=== PATIENT | female | born 1945 | race Caucasian/White ===

== ENCOUNTER 2020-05-10 09:43 | Outpatient (REF) | payer MEDICARE, OTHER, SELFPAY ==
--- NOTE | 2020-05-10 09:52 | MM_ITS ---
EXAMINATION: MM SCREENING DIGITAL BREAST TOMOSYNTHESIS, BILATERAL CLINICAL INFORMATION: Screening. Asymptomatic. Family history breast cancer, sister. The lifetime risk of breast cancer based on the Tyrer-Cuzick Model is 6%. COMPARISON: Mammography: 12/26/2018, 05/11/2017 TECHNIQUE: Digital breast tomosynthesis is performed in both the craniocaudal and mediolateral oblique views along with computer-aided detection (CAD). Synthesized 2D images are generated from the tomosynthesis. FINDINGS: There are scattered areas of fibroglandular density (ACR BI-RADS breast composition Category b). Parenchymal pattern is similar to prior studies. There is no developing density or interval mass or architectural abnormality. No abnormal calcifications. The skin contours are smooth. MM/MM tomosynthesis screening BI IMPRESSION: No mammographic evidence of malignancy. ASSESSMENT: BI-RADS 1: Negative RECOMMENDATION: Routine annual mammography screening. This patient's information was entered into a reminder system with a target due date for their next mammogram.
== END 2020-05-10 09:44 | disposition home or self-care (01) ==
LOC: HO.MAMMO 09:43
PROVIDERS: Visit Provider Registered Nurse
DX: Z12.31 Encounter for screening mammogram for malignant neoplasm of breast (principal)
CPT/HCPCS: 77063; 77067

== ENCOUNTER 2025-05-31 12:14 | Outpatient (REF) | payer MEDICARE, OTHER, SELFPAY ==
--- NOTE | ~2025-05-31 | MM_ITS ---
EXAMINATION(S): MM DIAGNOSTIC DIGITAL BREAST TOMOSYNTHESIS, BILATERAL CLINICAL INFORMATION: Left breast pain According to patient, tenderness over the entire breast for 4 to 5 months, on and off. COMPARISON: Comparison made to multiple prior, most recent May 10, 2020, and most remote May 11, 2017. TECHNIQUE: Digital breast tomosynthesis is performed in both the mediolateral oblique and craniocaudal views along with computer-aided detection (CAD). Synthesized 2D images are generated from the tomosynthesis. FINDINGS: BREAST COMPOSITION: There are scattered areas of fibroglandular density. RIGHT BREAST: Asymmetry in the upper breast on the MLO view presses out with spot compression, therefore, most likely represented overlapping fibroglandular breast tissue. No significant masses, suspicious calcifications or other abnormalities are seen. LEFT BREAST: No significant masses, suspicious calcifications or other abnormalities are seen. MM/MM tomosynthesis diagnostic BI IMPRESSION: RIGHT BREAST: Negative, no mammographic evidence of malignancy. Normal interval follow-up is recommended in 12 months. LEFT BREAST: Negative, no mammographic evidence of malignancy. Clinical follow-up is recommended for the clinical concern of diffuse left breast pain. Otherwise, normal interval follow-up mammogram is recommended in 12 months. ASSESSMENT: BI-RADS: Category 1: Negative RECOMMENDATION: 1. Patient should be managed based on the clinical impression. 2. Otherwise, routine annual screening mammography. Results were provided to the patient at time of visit by the technologist. This patient's information was entered into a reminder system with a target due date for their next mammogram. Electronically signed by: Teri Durán MD 05/31/2025 01:39 PM [email or web address]
--- OUTSIDE RECORDS SUMMARY | 2025-05-31 15:58 | XMS_ITS | Encounter Summary ---
Author Organization [facility] Address [address] [address] Phone Care Team Providers Care Application Specialist Name Role Phone Johnathon Naranjo MD Unavailable [phone] Jovana Jacobsen PAINTER AIRBRUSH Primary Care Provider Eddie Enriquez MD Unavailable [phone] Gia Chambers PHARMACY INNOVATION ASSISTANT Primary Care Provider Rusty FordC Primary Care Provider [phone] Encounter Details Date Type Department Care Team (Latest Contact Info) Description 12/12/2021 Transcribe Orders Virtual Department [address] [place] [address] Jesenia James, RAUL [address] [place] [address] Lower abdominal pain (Primary Dx) Social History Tobacco Use Types Packs/Day Years Used Date Smoking Tobacco: Never Smokeless Tobacco: Never Alcohol Use Standard Drinks/Week Comments Yes 0 (1 standard drink = 0.6 oz pur e alcohol) 2 x month, 1 drink Child or Family Care Answer Date Record ed Do you have problems with on e of the following making it difficult for you to work, study, or receive health care? No 05/17/2021 Education Answer Date Recorded Are you interested in help w ith more adult education (for example, completing high school, GED, job training, learning the Kiswahili language, technical skills, or developing parenting skills)? No 05/17/2021 Food Answer Date Recorded Within the past 6 months we worried whether our food would run out before we got money to buy more. Never True 05/17/2021 Within the past 6 months the food we bought just didn't last and we didn't have enough money to get more. Never True Residential Stability Answer Date Recor ded What is your housing situation today? I have sita sing 05/17/2021 How many times have you move d in the past 12 months? Zero (I did not move) 05/17/2021 Paying for Meds Answer Date Recorded Do you have trouble paying for medicines? No 05/17/2021 Paying Utility Bills Answer Date Record ed Do you have trouble paying your heating or elect ricity bill? No 05/17/2021 Transportation Answer Date Recorded Has the lack of transportati on kept you from medical appointments or from getting medications? No 05/17/2021 Unemployment Answer Date Recorded Are you currently unemployed or working on a part-time or temporary basis, and looking for work? No 05/17/2021 Comments No Sex and Gender Information Value Date Recorded Sex Assigned at Not on file Legal Sex Female 10:10 PM EDT Gender Identity Not on file Sexual Orientation Not on file documented as of this encounter Plan of Treatment Upcoming Encounters Date Type Department Care Team (Late st Contact Info) Description 06/01/2025 8:40 AM EST Office Visit [facility] Orthopedics & Sports Medicine [address] [place] [address] [place] [address] Wiliam Willis PA-C [address] [place] [address] [place] [phone] [email or web address] 06/07/2025 10:30 AM EST Appointment [facility] EKG [address] [place] [address] Rickie Farr DO 4 [facility] [place] [place] [address] 06/16/2025 10:00 AM EST Office Visit [facility] Orthopedics & Sports Medicine [address] [place] [address] Wiliam Willis PA-C [address] [place] [address] [place] [address] [email or web address] 06/16/2025 3:20 PM EST Office Visit [facility] Internal Medicine [address] [place] [address] Rusty Ford PA-C [address] [place] [address] 07/12/2025 Procedure Pass OR Admitting Dept - Virtual Department [address] [place] [address] 07/12/2025 7:30 AM EST Hospital Encounter OR Admitting Dept - Virtual Department [address] [place] [phone] Rickie Farr, 4 [facility] [place] [address] 07/12/2025 7:30 AM EST - 07/12/2025 9:53 AM EST Surgery OR Admitting Dept - Virtual Department [address] [place] [address] Rickie Farr DO 4 [facility] [place] [address] ARTHROPLASTY ANATOMIC INVERSE SHOULDER 07/27/2025 9:00 AM EST Office Visit [facility] Orthopedics & Sports Medicine [address] [place] [address] [place] [address] Wiliam Willis PA-C [address] [place] [address] [place] [phone] [email or web address] 08/24/2025 10:00 AM EST Office Visit [facility] Orthopedics & Sports Medicine [address] [place] [address] [place] [address] Rickie Farr DO [address] [place] [address] [facility] [place] [address] [email or web address] Scheduled Procedures Name Priority Associated Diagnoses Date/Ti me ARTHROPLASTY ANATOMIC INVERSE SHOULDER Primary localized osteoarthrosis of left shoulder region 07/12/2025 7:30 AM EST TENODESIS BICEPS TENDON SHOULDER Primary localized osteoarthrosis of left shoulder region 07/12/2025 7:30 AM EST documented as of this encounter Results * US ABDOMEN COMPLETE (ADULT) (01/05/2022 8:37 AM EDT) Anatomical Region Laterality Modality Abdomen Ultrasound 01/05/2022 10:0 3 AM EDT Impressions 01/05/2022 10:06 AM EDT 1.Mild hepatic steatosis. 2.Cholecystectomy. Narrative 01/05/2022 10:06 AM EDT US ABDOMEN COMPLETE (ADULT) TECHNIQUE: Abdominal Ultrasound Complete. COMPARISON: Ultrasound dated 02/03/2013 FINDINGS: Liver: Mildly echogenic. Two left hepatic lobe cysts again seen, the larger measuring 1.8 x 1.7 x 0.9 cm. No other focal lesions. Main Portal Vein: Patent with normal direction of flow. Gallbladder: Surgically absent. Biliary: Normal. No intrahepatic biliary ductal dilatation. The common bile duct measures 6 mm. Pancreas: Visualized portions are unremarkable Spleen: Normal. No splenomegaly. Kidneys: Normal. No stones or hydronephrosis. Aorta: Normal, where visualized sonographically. IVC: Normal intrahepatic segment. Procedure Note Bertin rOtega MD - 01/05/2022 US ABDOMEN COMPLETE (ADULT) TECHNIQUE: Abdominal Ultrasound Complete. COMPARISON: Ultrasound dated 02/03/2013 FINDINGS: Liver: Mildly echogenic. Two left hepatic lobe cysts again seen, thelarger measuring 1.8 x 1.7 x 0.9 cm. No other focal lesions. Main Portal Vein: Patent with normal direction of flow. Gallbladder: Surgically absent. Biliary: Normal. No intrahepatic biliary ductal dilatation. The common bile duct measures 6 mm. Pancreas: Visualized portions are unremarkable Spleen: Normal. No splenomegaly. Kidneys: Normal. No stones or hydronephrosis. Aorta: Normal, where visualized sonographically. IVC: Normal intrahepatic segment. IMPRESSION: 1.Mild hepatic steatosis. 2.Cholecystectomy. us Jesenia James ACCOUNT TECHNICIAN IMG US ABDOMEN Final Res ult documented in this encounter Visit Diagnoses Diagnosis Lower abdominal pain- Primary Abdominal pain, other specified site Lower abdominal pain Abdominal pain, other specified site Primary localized osteoarthrosis of left shoulder region documented in this encounter Additional Health Concerns Infection Onset Date Last Indicated Resolved Time COVID-19 06/20/2023 06/20/2023 07/11/2023 1:26 AM EST CoV-Risk Comment:Per Ambulatory Triage Form 06/21/2023 06/21/202306/21 9:34 AM EST CoV-Risk 02/11/2024 02/11/2024 02/22/2024 1:24 AM EDT Assessment Noted Time PHQ-2 Depression Total Score: 0 06/09/20 3:39 PM EST documented as of this encounter Care Teams Application Specialist Relationship Specialty Start Date End Date Jovana Jacobsen CNP [address] [place] [address] [email or web address] PCP - General Internal Medicine 07/14/20 04/04/23 Gia Chambers FNP [address] [address] PCP - General Nurse Practitioner 04/05/23 08/20/24 [email or web address] Ford PA-C [address] [place] [address] [email or web address] PCP - General Physician Client Relationship Consultant 08/21/24 Johnathon Naranjo MD [address] [place] [phone] Ophthalmology 06/03/20 dEdie Enriquez MD [address] [place] [phone] [email or web address] Insurance Assigned Provider 10/07/21 07/07/22 documented as of this encounter Additional Source Comments The information contained in this document represents components of the legal health record. It is not the complete legal health record.[facility]
--- OUTSIDE RECORDS SUMMARY | 2025-05-31 15:58 | XMS_ITS | Encounter Summary ---
Author Organization [facility] Address [address] [place] [address] Phone Care Team Providers Care Talend Developer Name Role Phone Johnathon Naranjo MD Unavailable [phone] Rusty Ford PA-C Primary Care Provider [phone] Encounter Details Date Type Department Care Team (Latest Contact Info) Description 01/14/2025 Ancillary Orders [address] [address] Sandra Bejarano MD [address] [place] [address] Orthopedics & Sports Medicine, [place] [address] [email or web address] Localized osteoarthritis of shoulder regions, bilateral (Primary Dx) Social History Tobacco Use Types Packs/Day Years Used Date Smoking Tobacco: Never Smokeless Tobacco: Never Alcohol Use Standard Drinks/Week Comments Yes 0 (1 standard drink = 0.6 oz pur e alcohol) 1-2 drinks, 2-4 x month Child or Family Care Answer Date Record ed Do you have problems with on e of the following making it difficult for you to work, study, or receive health care? Family care (i.e. spouse, parents, other family) 06/01/2024 Education Answer Date Recorded Are you interested in more education? Not on jose r e 05/20/2023 Are you concerned about learning? Not on file 05/20/2023 No 05/20/2023 No 05/20/2023 Food Answer Date Recorded Within the past 6 months we worried whether our food would run out before we got money to buy more. Never True 06/01/2024 Within the past 6 months the food we bought just didn't last and we didn't have enough money to get more. Never True Residential Stability Answer Date Recor ded What is your housing situation today? I choose n ot to answer 06/01/2024 How many times have you move d in the past 12 months? Zero (I did not move) 06/01/2024 Paying for Meds Answer Date Recorded Do you have trouble paying for medicines? Yes 06/01/2024 Paying Utility Bills Answer Date Record ed Do you have trouble paying your heating or elect ricity bill? Yes 06/01/2024 Transportation Answer Date Recorded Has the lack of transportati on kept you from medical appointments or from getting medications? No 06/01/2024 Unemployment Answer Date Recorded Are you currently unemployed or working on a part-time or temporary basis, and looking for work? No 05/17/2021 Digital Access Answer Date Recorded No 06/01/2024 Yes 06/01/2024 Do you have reliable internet access at home? Ye s 06/01/2024 Do you have a device (e.g., phone, tablet, computer) with a working camera? Yes 06/01/2024 Intimate Partner Violence Answer Date R ecorded Denied Basic Needs Not on file 11/04/2024 In the past 12 months have y ou been in a relationship with a person who hurts, threatens, or tries to control you? No 11/04/2024 Worried food would run out Not on file 11/04 In the past 12 months have y ou been in a relationship with a person who hurts, threatens, or tries to control you? No 11/04/2024 Comments No Sex and Gender Information Value Date Recorded Sex Assigned at Not on file Legal Sex Female 10:10 PM EDT Gender Identity Not on file Sexual Orientation Not on file documented as of this encounter Plan of Treatment Upcoming Encounters Date Type Department Care Team (Late st Contact Info) Description 06/01/2025 8:40 AM EST Office Visit [facility] Orthopedics & Sports Medicine [address] [place] [address] [place] [address] Wiliam Willis PA-C [address] [place] [address] [place] [address] [email or web address] 06/07/2025 10:30 AM EST Appointment [facility] EKG [address] [place] [address] Rickie Farr DO 4 [facility] [place] [place] [address] 06/16/2025 10:00 AM EST Office Visit [facility] Orthopedics & Sports [address] [address] Wiliam Willis PA-C [address] [place] [address] [place] [address] [email or web address] 06/16/2025 3:20 PM EST Office Visit [facility] Internal Medicine [address] [place] [address] Rusty Ford PA-C [address] [place] [address] 07/12/2025 Procedure Pass OR Admitting Dept - Virtual Department [address] [place] [address] 07/12/2025 7:30 AM EST Hospital Encounter OR Admitting Dept - Virtual Department [address] [place] [address] Rickie Farr DO [address] [place] [address] Orthopedics & Sports [facility] [place] [address] 07/12/2025 7:30 AM EST - 07/12/2025 9:53 AM EST Surgery OR Admitting Dept - Virtual Department [address] [place] [address] Rickie Farr DO 4 [facility] [place] [address] [email or web address] ARTHROPLASTY ANATOMIC INVERSE SHOULDER 07/27/2025 9:00 AM EST Office Visit [facility] Orthopedics & Sports Medicine [address] [place] [address] [place] [address] Wiliam Willis PA-C [address] [place] [address] [place] [address] [email or web address] 08/24/2025 10:00 AM EST Office Visit [facility] Orthopedics & Sports Medicine [address] [place] [address] [place] [address] Rickie Farr DO 4 [facility] [place] [place] [address] [email or web address] Pending Results Name Type Priority Associated Diagnoses Date /Time FL Guidance Needle Placement Non-Spine Imaging Routine Localized osteoarthritis of shoulder regions, bilateral 01/19/2025 12:01 PM EDT Scheduled Orders Name Type Priority Associated Diagnoses Orde r Schedule FL Guidance Needle Placement Non-Spine Imaging Routine Localized osteoarthritis of shoulder regions, bilateral 1 Occurrences starting 01/14/2025 until 04/16/2025 Scheduled Procedures Name Priority Associated Diagnoses Date/Ti nj ARTHROPLASTY ANATOMIC INVERSE SHOULDER Primary localized osteoarthrosis of left shoulder region 07/12/2025 7:30 AM EST TENODESIS BICEPS TENDON SHOULDER Primary localized osteoarthrosis of left shoulder region 07/12/2025 7:30 AM EST documented as of this encounter Visit Diagnoses Diagnosis Localized osteoarthritis of shoulder regions, bilateral- Primary Primary localized osteoarthrosis of left shoulder region documented in this encounter Additional Health Concerns Assessment Noted Time PHQ-2 Depression Total Score: 0 06/03/20 24 8:02 PM EST documented as of this encounter Care Teams Talend Developer Relationship Specialty Start Date End Date Rusty Ford PA-C [address] [place] [address] [email or web address] PCP - General Physician Gasoline Catalyst Operator 08/21/24 Johnathon Naranjo MD [address] [place] [phone] Ophthalmology 06/03/20 documented as of this encounter Additional Source Comments The information contained in this document represents components of the legal health record. It is not the complete legal health record.[facility]
--- OUTSIDE RECORDS SUMMARY | 2025-05-31 15:58 | XMS_ITS | Clinical Summary ---
Author Organization [facility] Address [address] [place] [id number] Phone Care Team Providers Care Shop Service Technician Name Role Phone Johnathon Naranjo MD Unavailable [phone] Rusty Ford PA-C Primary Care Provider [phone] Allergies Active Allergy Reactions Criticality Noted Date Comments Cyclobenzaprine Itching 12/10/2024 Pain Medicine 06/07/2017 Narcotics in general: hallucinations Penicillins Hives 06/07/2017 Happened a long time ago, thinks something else happened in addition to hives Methocarbamol Headaches 02/16/2025 Tramadol Nausea and/or Vomiting 05/10/2025 Medications atenolol (TENORMIN) 25 MG tabletIndications: Essential hypertension TAKE 1 TABLET BY MOUTH EVERY DAY 90 tablet 3 06/01/20 24 Active cholecalciferol 25 MCG (1,000 unit) tablet TAKE 1 TABLET BY MOUTH EVERY DAY 90 tablet 1 11/07/19 25 Active lovastatin (MEVACOR) 20 MG tabletIndications: Mixed hyperlipidemia TAKE 1 TABLET BY MOUTH EVERY DAY IN THE MORNING 90 tablet 3 12/04/19 25 Active lubiprostone (AMITIZA) 8 MCG capsuleIndications :Irritable bowel syndrome with constipation TAKE 1 CAPSULE BY MOUTH TWICE A DAY WITH MEALS 180 capsule 3 02/24/20 25 Active tetanus toxoid-reduced diphth toxoid-acell pertussis (BOOSTRIX,TDAP) 2.5-8-5 Lf-mcg-Lf/0.5mL Susp Inject 0.5 mL into the muscle once for 1 dose. 0.5 mL 03/17/20 25 Discontin ued(No longer taking) traMADoL (ULTRAM) 50 mg tablet Take 1 tablet (50 mg total) by mouth every 8 (eight) hours as needed for pain (specific location in comments). 15 tablet 03/17/20 25 Discontin ued(No longer taking) hydrOXYzine HCL (ATARAX) 10 MG tabletIndications: Anxiety reaction Take 1 tablet (10 mg total) by mouth every 8 (eight) hours as needed for anxiety. 20 tablet 03/17/20 25 Discontin ued(No longer taking) LORazepam (ATIVAN) 0.5 MG tablet Take 1 tablet (0.5 mg total) by mouth once for 1 dose. Please take 1/2-hour prior to MRI. Please note you will need to have somebody to drive you to and from your appointment 1 tablet 03/22/20 Discontin ued(No longer taking) meloxicam (MOBIC) 7.5 MG tablet Take 1 tablet (7.5 mg total) by mouth daily. 30 tablet 1 03/22/20 25 Discontin ued(No longer taking) Active Problems Problem Noted Date Diagnosed Date Pre-op evaluation 05/07/2025 Assessment & Plan (05/10/2025 4:48 PM EST): Patient with a past medical history of arthritis, back pain, incomplete bowel emptying, endocervical adenocarcinoma, hyperlipidemia, hypertension, prediabetes posterior vitreous detachment of the left eye, rheumatoid arthritis who presents today for preop evaluation. Patient will be undergoing a reverse shoulder arthroplasty with Dr Farr on 07/12/2025 for OA. Her blood pressure is well controlled on atenolol 25mg daily. Her last lipid panel was within normal limits and is controlled on lovastatin 20mg daily. Labs reveal a higher hgb A1c of 6.4 from previous of 5.9. Patient does not check her blood sugars. She was advised on diet and exercise to help lower her hgb A1c. I have advised the patient due to increased hgb A1c, this could cause slow healing and she may require a repeat hgb A1c prior to her surgery and potential medications for coverage during her hospital stay. EKG: There was an attempt at her EKG in the office however both her machines were not working properly therefore this unfortunately was not completed. Our machines would not read V4 through V6 despite us wiping down skin and changing leads excetra. I have advised that they patient that we can work on getting her another EKG completed she does have an appointment scheduled with me on 06/16 at therefore we will go ahead and complete 1 at this time. According to the Yu perioperative risk assessment she has a 0.2% cardiac event intraoperative and postoperative. According to the ACP perioperative assessment patient is considered to be a low risk of developing intraoperative and postoperative cardiac events. Clearance pending EKG Chronic left shoulder pain 03/17/2025 Assessment & Plan (03/17/2025 12:31 PM EDT): Patient with a history of left shoulder pain that is noted to go up into the left side of the neck associated with noted left-sided trapezius muscle spasms. Patient has been seen and followed by orthopedics and has undergone numerous cortisone injections however this has not provided any relief. Patient continues to have increasing pain and decreased range of motion and has been trialing IcyHot, ibuprofen and [place] balm with without any real relief. Patient has an appointment scheduled for evaluation by Dr. Farr on 04/06 for further evaluation and possible surgery Given her increased pain and difficulty with sleeping patient has exhausted all other alternatives therefore I have recommended that the patient trial a small dose of tramadol 50 mg every 8 hours as needed. MassPAT has been verified. I have discussed side effects of the medication which can cause drowsiness and I advised the patient not to take this medication in conjunction with hydroxyzine. Patient understands and acknowledges this. Hepatic lesion 02/16/2025 Assessment & Plan (02/16/2025 5:41 PM EDT): Patient was complaining of right upper quadrant pain during her visit with my colleague back in December 2024. At that time she was examined and sent for an ultrasound which revealed fatty liver disease and hepatic cyst. Patient continues to have right upper quadrant pain with relation to the back. She is status postcholecystectomy years ago. She denies any nausea or vomiting. -CMP ordered -For her fatty liver disease I advised diet and exercise -For the incidental finding of hepatic cyst I will order an MRI abdomen with liver protocol to further define if this is a hemangioma. -GI [facility] referral Routine general medical exam ination at a [facility] 02/16/2025 Assessment & Plan (02/16/2025 5:41 PM EDT): We will obtain CMP, TSH, fasting glucose and lipid panels. 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 At that time patient received hydroxyzine 25 mg p.o. 3 times daily as needed which worked well however developed some side effects of the medications such as dry mouth and grogginess the following day. Since then her cortisone injection has worn off and patient mentions that she is doing much better. She no longer has any anxiety. However she does have an upcoming MRI and notes that she could benefit from a 10 mg tablet of the hydroxyzine for the MRI that is scheduled this coming Saturday. This prescription has been sent to the pharmacy. Assessment & Plan (02/16/2025 5:41 PM EDT): Patient with no prior history of anxiety in the past started with anxiety symptoms after receiving cortisone injection in her shoulder from orthopedics. Patient is unclear of what what type of steroid was used however patient started with increasing anxiety requiring an urgent care visit subsequently a office visit for further evaluation. At that time patient was started on hydroxyzine 10 mg at urgent care and this was bumped up to 20 mg in the office and patient has been taking nightly. However patient states that she is able to fall asleep for a little while but then wakes up once again. She notes that her anxiety has started to slowly improve however is still present. We had a long discussion with regards to her symptoms and she is able to pinpoint the day that it started which was a couple of days after receiving the cortisone injection. She has a fear of going to sleep. We talked about an increase in dose of hydroxyzine up to 25 mg which I did prescribe 3 times a day however patient is well aware that this could make her drowsy therefore she chooses to take this at night. We also further discussed other options such as lorazepam however patient is extremely hesitant about taking this medication as her father had committed suicide after taking benzodiazepine in the late 1980s.. Assessment & Plan (01/26/2025 4:43 PM EDT): Anxiety reaction to the cortisone, continue hydroxyzine for reducing anxiety. Is allowed to take 10 to 20 mg but should not take this before driving, she will probably just use it at night before sleep at 8 PM. Mixed hyperlipidemia 06/12/2020 Assessment & Plan (02/16/2025 5:41 PM EDT): Patient with a history of hyperlipidemia who is on Mevacor 20 mg p.o. daily which will be continued. We will obtain a lipid panel. Assessment & Plan (11/04/2024 4:20 PM EDT): Patient recently had a lipid panel in September 2024 which was well within normal limits. She is maintained on lovastatin 20 mg p.o. daily which we will continue. Assessment & Plan (06/08/2024 3:40 PM EST): Labs as ordered. Continue lovastatin as prescribed Assessment & Plan (12/09/2023 10:01 AM EDT): Will check labs. Continue lovastatin as prescribed Cataract of both eyes 06/12/2020 Irritable bowel syndrome with constipation 07/14 Assessment & Plan (02/16/2025 5:41 PM EDT): Patient with a history of bowel issues which has been ongoing for quite some time. Patient stated that she did follow with GI at 1 point in time however no longer follows with them. She has been on Amitiza which has been helpful. We will continue this medication. Assessment & Plan (11/04/2024 4:20 PM EDT): Patient with a history of bowel issues which has been ongoing for quite some time. Patient stated that she did follow with GI at 1 point in time however no longer follows with them. She has been on Amitiza which has been helpful. We will continue this medication. Assessment & Plan (07/14/2019 7:05 AM EST): Trial Amitiza 4 mcg daily. Psychophysiologic insomnia 07/14/2019 Assessment & Plan (07/14/2019 7:05 AM EST): Ok to continue melatonin 2.5 mg nightly as needed. Encouraged regular exercise to help with sleep. Stress incontinence of urine 12/29/2018 Assessment & Plan (06/08/2024 3:41 PM EST): She has started with pelvic floor physical therapy intake visit and plans to continue treatment course Assessment & Plan (12/09/2023 10:01 AM EDT): Discussed pharmacologic and non-pharmacologic treatment options including pelvic floor physical therapy which she would like to trial. Referral placed Assessment & Plan (07/14/2019 7:05 AM EST): Will monitor. Vitamin D deficiency 12/29/2018 Assessment & Plan (07/14/2019 7:04 AM EST): Restart supplement and test in 6 weeks. Essential hypertension 02/12/2018 Assessment & Plan (02/16/2025 5:41 PM EDT): Well-controlled on atenolol 25 mg p.o. daily Assessment & Plan (11/04/2024 4:19 PM EDT): Patient with a history of hypertension which is well-controlled on atenolol 25 mg p.o. daily which we will continue Assessment & Plan (06/08/2024 3:40 PM EST): Well controlled today in office, continue atenolol as prescribed. Discussed treatment goals and at-home monitoring, call is persistently elevated above 140/90. Assessment & Plan (12/09/2023 10:00 AM EDT): Despite self-discontinuing losartan, blood pressure remains within treatment goal today in office. At-home blood pressure log reviewed which were also largely within goal. Continue atenolol 25 mg as prescribed Assessment & Plan (06/18/2023 5:36 PM EST): BP at treatment goal today in office. Review of at-home readings also within goal and she denies any side effects or symptoms of hypotension. Continue losartan 26 mg and atenolol 25 mg as prescribed. Reviewed emergent symptoms requiring evaluation. Otherwise, she will continue at-home monitoring and we will follow up in 6 months for in office BP check Assessment & Plan (05/21/2023 9:40 PM EST): Discussed treatment goal of BP less than or equal to 140/90 as well as proper at-home monitoring with readings taken throughout the day. We agreed upon taking Losartan 12.5 mg as we agree that I do not think the dizziness she experienced was to an allergy and rather too high of a dose. She prefers to restart this medication rather than trying another. Emergent symptoms reviewed. BP check in one month and she will bring at-home monitoring log Assessment & Plan (03/28/2023 9:41 AM EDT): B/p is elevated, however, she did not take am meds yet. Will not add more meds a this time - Gave detailed instructions in AVS on how best to take the home B/P for our assessment- she will do this, and f/u in 6 week to recheck warning signs reviewed To call us or pres to ED for eval should s/s appear Assessment & Plan (07/14/2019 7:04 AM EST): Continue atenolol as prescribed. Resolved Problems Problem Noted Date Diagnosed Date Resolved Date Right upper quadrant pain 01/26/2025 Assessment & Plan (02/16/2025 5:39 PM EDT): Patient was complaining of right upper quadrant pain during her visit with my colleague back in December 2024. At that time she was examined and sent for an ultrasound which revealed fatty liver disease and hepatic cyst. Patient continues to have right upper quadrant pain with relation to the back. She is status postcholecystectomy years ago. She denies any nausea or vomiting. -CMP ordered -For her fatty liver disease I advised diet and exercise -For the incidental finding of hepatic cyst I will order an MRI abdomen with liver protocol to further define if this is a hemangioma. -GI [facility] referral Assessment & Plan (01/26/2025 4:44 PM EDT): This seems to be most likely a abdominal muscle oblique her transverse strain or could be something with the liver capsule therefore ultrasound liver ordered nonfasting. To be done at [facility] for rule out cause. If the right upper quadrant ultrasound comes back negative the most likely it is abdominal wall issue. Then perhaps physical therapy can be done or conservative management with time and nonsteroidals. Trapezius muscle spasm 11/04/202403/17 Assessment & Plan (12/10/2024 1:19 PM EDT): Patient was seen in October for bilateral trapezius muscle spasm and at that time she was started on Flexeril 5 mg p.o. 3 times daily as needed along with a referral to physical therapy. Patient has been receiving physical therapy which has been helpful however the Flexeril caused itching and therefore she stopped the medication. Since then she has had increasing muscle spasms causing increasing pain and therefore represents today for other options. -I will start her on Robaxin 500 mg p.o. twice daily patient was advised that this could make her drowsy therefore she should not drive -I have also recommended [place] balm to apply to the area however this should not be used in combination with ice or heat. -Continue physical therapy and gentle stretching -Continue heat Assessment & Plan (11/04/2024 4:22 PM EDT): Patient noted to have trapezius spasms bilaterally on physical exam. Patient states that this has been an ongoing issue for quite some time causing excruciating pain and debilitating at times. She also mentions that the pain goes into her left shoulder. She has had x-rays of her left shoulder which has shown arthritis and she has had cortisone injections which have provided no relief. -[facility] PT referral -Flexeril 5 mg p.o. 3 times daily as needed muscle spasms. Patient advised that this can cause drowsiness therefore she should not drive while taking this medication -She does have an upcoming appointment with Dr. Farr as well as Dr. Elliott and at [facility] for a second opinion. Patellar instability of right knee 07/14/2020 03/17/2025 History of total right knee replacement 07/14/2020 03/17/2025 Notalgia 07/14/2019 11/04/2024 Dry skin dermatitis 07/14/2019 11/05/19 25 Assessment & Plan (07/14/2019 7:06 AM EST): Will trial unscented moisturizer to lower abdomen, labia majora in morning. Will trial triamcinolone sparingly to area only at night and for no longer than a few days at a time. Avoid longer than 2 weeks of use. Rheumatoid arthritis involving multiple sites 12/30/19 19 07/14/2020 Low phosphate levels 12/29/2018 025 Left ankle pain 06/07/2017 11/04/2024 Encounters Date Type Department Care Team Description 05/31/2025 Orders Only [facility] [address] [place] [id number] Charis Collazo 05/24/2025 Refill [facility] [address] [place] [address] Rusty Ford PA-C Medication Refill 05/10/2025 2:40 PM EST Office Visit [facility] [address] [place] [address] Rusty Ford PA-C Pre-op evaluation (Primary Dx) 05/07/2025 11:19 AM EST - 05/07/2025 11:59 PM EST Hospital Encounter [facility], [address] [address] Rickie Farr, Discharge Disposition: Home or Self Care 04/20/2025 Telephone [facility] [address] [place] [address] Rusty Ford PA-C mammogram order 04/06/2025 10:30 AM EDT Office Visit [facility] [address] [place] [address] [place] [address] Rickie Farr, Primary localized osteoarthrosis of left shoulder region (Primary Dx) 04/06/2025 Procedure Pass [facility], [address] [address] 03/22/2025 Telephone [facility] [address] [place] [address] Rusty Ford PA-C Medication Question 03/17/2025 11:20 AM EDT Office Visit [facility] [address] [place] [address] Rusty Ford PA-C Chronic left shoulder pain (Primary Dx); Anxiety reaction 03/12/2025 10:39 AM EDT - 03/12/2025 11:59 PM EDT Hospital Encounter [facility] [address] [place] [address] Rusty Ford PA-C Discharge Disposition: Home or Self Care from Last 3 Months Immunizations Immunization Administration Dates Next Due COVID-19 (Pre-04/22) Pfizer Vaccine, mRNA, PF 08/30/2020,08/09/2020 INFLUENZA, SPLIT VIRUS, TRIV ALENT W/ PRESERVATIVE IM 07/08/2013 Influenza High-Dose Quadriva lent Preservative Free IM 04/09/2023,05/01/2022,05/17/2021,04/15 Influenza High-Dose Trivalen t Preservative Free IM 04/18/2025,04/28/2019,04/17/2018 Influenza Quadrivalent Prese rvative Free IM 06/15/2016 Influenza Trivalent Adjuvant ed Preservative free IM 05/22/2024 Pneumococcal conjugate PCV13 02/18/2018 Pneumococcal polysaccharide PPSV23 05/30/2022 RSV Vaccine (monovalent, adjuvanted) 07/05/2024 Zoster recombinant 05/09/2023,11/16/2022 Family History Medical History Relation Comments Uncoded Family History Father Uncoded Family History Mother Breast cancer Sister 1 Relation Status Comments Father (Age 73) Mother (Age 61) Sister 1 at 61 y/o Sister 2 Alive Sister 3 Alive Social History Tobacco Use Types Packs/Day Years Used Date Smoking Tobacco: Never Smokeless Tobacco: Never Tobacco Cessation:Counseling Given: Not Answered Alcohol Use Standard Drinks/Week Comments Yes 0 (1 standard drink = 0.6 oz pur e alcohol) 1-2 drinks, Monthly or less Child or Family Care Answer Date Record [...] on file Sexual Orientation Not on file Last Filed Vital Signs Vital Sign Reading Time Taken Comments Blood Pressure 136/72 05/10/2025 2:34 PM EST Pulse 72 05/10/2025 2:34 PM EST Temperature 36.3 C (97.4 F) 01/26/2025 3:58 PM EDT Respiratory Rate 19 05/10/2025 2:34 PM EST Oxygen Saturation 99% 05/10/2025 2:34 PM EST Inhaled Oxygen Concentration - - Weight 89.6 kg (197 lb 9.6 oz) 05/10/2025 2:34 P M EST Height 165.1 cm (5' 5 ) 05/10/2025 2:34 PM EST Body Mass Index 32.88 05/10/2025 2:34 PM EST Plan of Treatment Upcoming Encounters Date Type Department Care Team (Late st Contact Info) Description 06/01/2025 8:40 AM EST Office Visit [facility] [address] [place] [address] [place] [address] Wiliam Willis PA-C [address] [place] [address] [place] [address] [email or web address] 06/07/2025 10:30 AM EST Appointment [facility] [address] [place] [phone] Rickie Farr, DO 4 [facility] [place] [address] 06/16/2025 10:00 AM EST Office Visit [facility] [address] [place] [address] Wiliam Willis PA-C [address] [place] [address] [place] [address] [email or web address] 06/16/2025 3:20 PM EST Office Visit [facility] [address] [place] [address] Rusty Ford PA-C [address] [place] [address] 07/12/2025 Procedure Pass [place] Admitting Dept - Virtual Department [address] [place] [phone] 07/12/2025 7:30 AM EST Hospital Encounter [place] Admitting Dept - Virtual Department [address] [place] [phone] Rickie Farr, DO 4 [facility] Orthoped[facility] Sports [facility] [place] [address] 07/12/2025 7:30 AM EST - 07/12/2025 9:53 AM EST Surgery OR Admitting Dept - Virtual Department [address] [place] [phone] Rickie Farr, DO 4 [facility] [place] [address] ARTHROPLASTY ANATOMIC INVERSE SHOULDER 07/27/2025 9:00 AM EST Office Visit [facility] [address] [place] [address] [place] [address] Wiliam Willis PA-C [address] [place] [address] [place] [address] [email or web address] 08/24/2025 10:00 AM EST Office Visit [facility] [address] [place] [address] [place] [address] Rickie Farr DO [address] [place] [address] Orthopedics & Sports Medicine, [facility] [place] [address] Scheduled Procedures Name Priority Associated Diagnoses Date/Ti me ARTHROPLASTY ANATOMIC INVERSE SHOULDER Primary localized osteoarthrosis of left shoulder region 07/12/2025 7:30 AM EST TENODESIS BICEPS TENDON SHOULDER Primary localized osteoarthrosis of left shoulder region 07/12/2025 7:30 AM EST Health Maintenance Due Date Last Done Comments Adult Td,Tdap Booster 1945 COVID-19 VACCINE ( season) 2025 04/18/2025, 05/22/2024, 04/09/2023, Additional history exists BLOOD PRESSURE 11/07/2025 05/10/2025 DEPRESSION SCREENING 02/16/2026 02/16/2025 OSTEOPOROSIS SCREENING INITIAL (ONE-TIME) Completed 01/27/2010 PNEUMOCOCCAL VACCINES (50+ years) Completed 05/30/2022, 02/18/2018 ZOSTER VACCINES Completed 05/09/2023, 11/16/2022 RSV VACCINE Completed 07/05/2024 INFLUENZA VACCINE Completed 04/18/2025, , 04/09/2023, Additional history exists HEPATITIS A VACCINES Aged Out No long er eligible based on patient's age to complete this topic HIB VACCINES Aged Out No longer eligi ble based on patient's age to complete this topic MENINGOCOCCAL VACCINES (ACWY) Aged Out No longer eligible based on patient's age to complete this topic MENINGOCOCCAL VACCINES (B) Aged Out N o longer eligible based on patient's age to complete this topic Medical Devices Not on file Procedures Procedure Name Priority Date/Time Associated Diagnosis Comments CT SHOULDER WITHOUT CONTRAST (LEFT) Routine 05/07/2025 12:21 PM EST Primary localized osteoarthrosis of left shoulder region CBC AND DIFFERENTIAL Routine 05/06/2025 9:37 AM EST Primary localized osteoarthrosis of left shoulder region ANTIBODY SCREEN Routine 05/06/2025 9:37 AM EST Primary localized osteoarthrosis of left shoulder region HEMOGLOBIN A1C Routine 05/06/2025 9:37 AM EST Primary localized osteoarthrosis of left shoulder region BASIC METABOLIC PANEL (BMP) Routine 05/06/2025 9:37 AM EST Primary localized osteoarthrosis of left shoulder region CBC AND DIFFERENTIAL Routine 05/06/2025 9:37 AM EST Primary localized osteoarthrosis of left shoulder region BI US BREAST (LEFT) Routine 04/20/2025 4 :55 PM EDT Breast pain, left BI MAMMOGRAM DIAGNOSTIC (BILATERAL) Routine 04/20/2025 4:55 PM EDT Breast pain, left MRI ABDOMEN Routine 03/16/2025 6:23 PM EDT Hepatic lesion LIPID PANEL Routine 03/12/2025 10:39 AM EDT Mixed hyperlipidemia TSH WITH REFLEX Routine 03/12/2025 10:39 AM EDT Routine general medical examination at a health care facility GLUCOSE, FASTING Routine 03/12/2025 10:3 9 AM EDT Routine general medical examination at a health care facility COMPREHENSIVE METABOLIC PANEL (CMP) Routine 03/12/2025 10:39 AM EDT Routine general medical examination at a health care facility OUTSIDE BONE DENSITY SCREENING Routine 01/27/2010 from Last 3 Months or Most Recently Relevant to Health Maintenance Results * CT SHOULDER WITHOUT CONTRAST (LEFT) (05/07/2025 12:21 PM EST) Anatomical Region Laterality Modality Shoulder Left Computed Tomogra phy 05/11/2025 2:03 AM EST Impressions 05/11/2025 2:05 AM EST Severe glenohumeral osteoarthritis. Narrative 05/11/2025 2:[address] SHOULDER WITHOUT CONTRAST (LEFT) TECHNIQUE: CT SHOULDER WITHOUT CONTRAST (LEFT). Arthroplasty planning protocol. Dose-modulation techniques used. COMPARISON: XR SHOULDER 2 OR MORE VIEWS (LEFT) FINDINGS: CORACOACROMIAL ARCH: Mild degenerative change of the acromioclavicular joint. ROTATOR CUFF: No muscle atrophy. BONE: No fracture or osteonecrosis. Partially visualized cervical and thoracic spine degenerative change. GLENOHUMERAL JOINT: Severe glenohumeral joint space narrowing, bone on bone contact, bony proliferative change, acquired glenoid retroversion, and posterolateral decentering of the humeral head. SOFT TISSUES: Biapical pleural-parenchymal scarring. Moderate to severe coronary artery calcification. Procedure Note Max Rodriguez MD - 05/11/2025 CT SHOULDER WITHOUT CONTRAST (LEFT) TECHNIQUE: CT SHOULDER WITHOUT CONTRAST (LEFT). Arthroplasty planningprotocol. Dose-modulation techniques used. COMPARISON: XR SHOULDER 2 OR MORE VIEWS (LEFT) FINDINGS: CORACOACROMIAL ARCH: Mild degenerative change of the acromioclavicularjoint. ROTATOR CUFF: No muscle atrophy. BONE: No fracture or osteonecrosis. Partially visualized cervical andthoracic spine degenerative change. GLENOHUMERAL JOINT: Severe glenohumeral joint space narrowing, bone onbone contact, bony proliferative change, acquired glenoid retroversion,and posterolateral decentering of the humeral head. SOFT TISSUES: Biapical pleural-parenchymal scarring. Moderate to severecoronary artery calcification. IMPRESSION: Severe glenohumeral osteoarthritis. us Rickie Farr DO IMG CT EXTREMITY Final Resu lt * (ABNORMAL) CBC and Differential (05/06/2025 9:37 AM EST) WBC 7.63 4.00 - 11.00 K/uL 05/06/2025 1:05 PM [facility] RBC 5.29(H) 4.00 - 5.20 M/uL 05/06/2025 1:05 PM [facility] Hemoglobin 15.5 12.0 - 16.0 g/dL 05/06/2025 1:05 PM [facility] Hematocrit 47.8(H) 36.0 - 46.0 % 05/06/2025 1:05 PM [facility] MCV 90.4 80.0 - 100.0 fL 05/06/2025 1:05 PM [facility] MCH 29.3 27.0 - 31.0 pg 05/06/2025 1:05 PM [facility] MCHC 32.4 32.0 - 36.0 g/dL 05/06/2025 1:05 PM [facility] MPV 11.9 8.4 - 12.0 fL 05/06/2025 1:05 PM [facility] RDW-CV 13.7 11.5 - 14.5 % 05/06/2025 1:05 PM [facility] PLT 218 150 - 450 K/uL 05/06/2025 1:05 PM [facility] Neutrophils 61.6 % 05/06/2025 1:05 PM [facility] Lymphocytes 25.7 % 05/06/2025 1:05 PM [facility] Monocytes 8.0 % 05/06/2025 1:05 PM [facility] Eosinophils 3.5 % 05/06/2025 1:05 PM [facility] Basophils 0.9 % 05/06/2025 1:05 PM [facility] Imm Grans 0.3 % 05/06/2025 1:05 PM [facility] NRBC 0.0 <=0.0 /100 WBCs 05/06/2025 1:05 PM [facility] Absolute Neutrophils 4.70 1.92 - 7.60 K/uL 05/06/2025 1:05 PM [facility] Absolute Lymphocytes 1.96 0.72 - 4.10 K/uL 05/06/2025 1:05 PM [facility] Absolute Monocytes 0.61 0.16 - 1.10 K/uL 05/06/2025 1:05 PM [facility] Absolute Eosinophils 0.27 0.00 - 0.50 K/uL 05/06/2025 1:05 PM [facility] Absolute Basophils 0.07 0.00 - 0.15 K/uL 05/06/2025 1:05 PM [facility] Absolute Imm Grans 0.02 0.00 - 0.09 K/uL 05/06/2025 1:05 PM [facility] Absolute NRBC 0.00 <=0.00 K cells/uL 05/06/2025 1:05 PM [facility] Absolute Neutrophils 4.70 1.92 - 7.60 K/uL 05/06/2025 1:05 PM [facility] Comment:Automated cell count . Manual ANC may differ if performed. Diff Type Auto 05/06/2025 1:05 PM [facility] Blood 05/06/2025 9:37 AM EST 05/06/2025 9:37 AM EST Rickie Farr DO LAB BLOOD BKR ORDERABLES Fi nal Result Performing Organization Address City/[facility]/ZIP Co de Phone Number [address] [address] * Antibody Screen (05/06/2025 9:37 AM EST) Antibody Screen Negative 05/06/2025 2:11 PM [facility] Blood 05/06/2025 9:37 AM EST 05/06/2025 9:37 AM EST Rickie Farr LAB BLOOD BANK TEST ORDERAB LES Final Result [facility], [address] [place] [address] [address] * (ABNORMAL) Hemoglobin A1c (05/06/2025 9:37 AM EST) Hemoglobin A1c 6.4(H) 4.3 - 5.6 % 05/06/2025 5:25 PM [facility] Calculated Mean Blood Glucose 137 mg/dL 05/06/2025 5:25 PM [facility] Comment:There is no [facility] normal range for the Estimated Average Glucose (EAG). However, a HbA1c of 5.6% (upper limit of normal) represents an EAG of 114 mg/dL. The diagnostic HbA1c level for diabetes is greater than or equal to 6.5%, which represents an EAG greater than or equal to 140 mg/dL. Blood 05/06/2025 9:37 AM EST 05/06/2025 9:37 AM EST us Rickie Farr DO LAB BLOOD BKR ORDERABLES Fi nal Result [address] [address] * (ABNORMAL) Basic Metabolic Panel (BMP) (05/06/2025 9:37 AM EST) Sodium 140 136 - 145 mmol/L 05/06/2025 2:22 PM [facility] Potassium 4.6 3.4 - 5.1 mmol/L 05/06/2025 2:22 PM [facility] Chloride 103 98 - 107 mmol/L 05/06/2025 2:22 PM [facility] CO2 26 20 - 31 mmol/L 05/06/2025 2:22 PM [facility] Anion Gap 11 3 - 17 mmol/L 05/06/2025 2:22 PM [facility] BUN 18 6 - 23 mg/dL 05/06/2025 2:22 PM [facility] Creatinine 0.80 0.50 - 1.00 mg/dL 05/06/2025 2:22 PM EST [facility] eGFR 74 >59 mL/min/1.7 3m2 05/06/2025 2:22 PM EST [facility] Comment:Estimated glomerular filtration rate calculated using the CKD-EPI refit equation. Glucose 124(H) 70 - 99 mg/dL 05/06/2025 2:22 PM EST [facility] Calcium 9.6 8.5 - 10.5 mg/dL 05/06/2025 2:22 PM EST [facility] Blood 05/06/2025 9:37 AM EST 05/06/2025 9:37 AM EST us Rickie Farr DO LAB BLOOD BKR ORDERABLES Fi nal Result Performing Organization Address City/[facility]/ZIP Co de Phone Number [address] [address] * (ABNORMAL) Glucose, fasting (03/12/2025 10:39 AM EDT) FASTING GLUCOSE 124(H) 70 - 95 mg/dL [facility] Blood 03/12/2025 10:3 9 AM EDT 03/12/2025 10:42 AM EDT us Rusty Ford PA-C LAB BLOOD BKR ORDERABLES Christie l Result Performing Organization Address City/[facility]/ZIP Co de Phone Number [address] [address] * (ABNORMAL) Comprehensive metabolic panel (03/12/2025 10:39 AM EDT) SODIUM 143 133 - 146 mmol/L [facility] POTASSIUM 4.4 3.3 - 5.1 mmol/L [facility] CHLORIDE 107 96 - 108 mmol/L [facility] CO2 26 21 - 35 mmol/L [facility] BUN 16 6 - 19 mg/dL [facility] CREATININE 0.90 0.5 - 1.5 mg/dL [facility] GLUCOSE 131(H) 70 - 99 mg/dL [facility] ALBUMIN 3.9 3.9 - 4.8 g/dL [facility] TOTAL PROTEIN 6.8 6.5 - 8.0 g/dL [facility] CALCIUM 9.9 8.4 - 10.3 mg/dL [facility] ALKALINE PHOSPHATASE 69 39 - 117 U/L [facility] TOTAL BILIRUBIN 0.5 0.0 - 1.2 mg/dL [facility] AST 18 0 - 37 U/L [facility] ALT 16 0 - 40 U/L [facility] GLOBULIN 2.9 1 - 4.8 g/dL [facility] EGFR 64 >59 mL/min/1.7 3m2 [facility] Comment:Estimated glomerular filtration rate calculated using the CKD-EPI refit equation. ANION GAP 14 10 - 20 mmol/L [facility] Blood 03/12/2025 10:3 9 AM EDT 03/12/2025 10:42 AM EDT Rusty Ford PA-C LAB BLOOD BKR ORDERABLES Christie l Result [address] [address] * TSH with reflex (03/12/2025 10:39 AM EDT) TSH 1.62 0.27 - 4.20 uIU/mL [facility] Blood 03/12/2025 10:3 9 AM EDT 03/12/2025 10:42 AM EDT Rusty Ford PA-C LAB BLOOD BKR ORDERABLES Christie l Result [address] [address] * (ABNORMAL) Lipid panel (03/12/2025 10:39 AM EDT) HDL 65 mg/dL [facility] Comment: Interpretation <40 mg/dL: Low HDL cholesterol (major risk factor for CHD) Greater than or equal to 60 mg/dL: High HDL cholesterol ( negative risk factor for CHD) HDL - cholesterol is affected by a number of factors, e.g. smoking, excerise, hormones, sex and age. CHOLESTEROL 157 0 - 240 mg/dL [facility] TRIGLYCERIDES 105 30 - 160 mg/dL [facility] LDL 71 50 - 129 mg/dL [facility] Comment: LDL levels in terms of risk for coronary heart disease: <100 mg/dL: Optimal 100-129 mg/dL: Near or above optimal 130-159 mg/dL: Borderline high 160-189 mg/dL: High >190 mg/dL: Very High CARDIAC RISK RATIO 2.4(L) 3.3 - 4.4 [facility] Blood 03/12/2025 10:3 9 AM EDT 03/12/2025 10:42 AM EDT us Rusty Ford PA-C LAB BLOOD BKR ORDERABLES Christie l Result Performing Organization Address City/State/[facility] Co de Phone Number [facility] [address] [place] [address] * OUTSIDE BONE DENSITY SCREENING (01/27/2010) [facility] Signature BONE DENSITY SCREENING - EXTERNAL normal us Historical Provider HEALTH MAINTENANCE Final Result from Last 3 Months or Most Recently Relevant to Health Maintenance Insurance MEDICARE PART A & B [facility] MEDICARE SUPPLEMENT MEDICARE PART A & B [facility] MEDICARE SUPPLEMENT MEDICARE PART A & [facility]IC[facility] SUPPLEMENT MEDICARE PART A & [facility] EXTENSION MEDICARE SUPPLEMENT MEDICARE PART A & B [facility] MEDICARE SUPPLEMENT MEDICARE PART A & B [facility] MEDICARE SUPPLEMENT MEDICARE PART A & B [employer] EXTENSION MEDICARE SUPPLEMENT MEDICARE PART A & B [employer] EXTENSION MEDICARE SUPPLEMENT MEDICARE PART A & B [facility] EXTENSION MEDICARE SUPPLEMENT Advance Directives For more information, please contact: [phone] (9AM - 5PM [facility], Saturday-Saturday) Documents on File Type Date Recorded Patient Medical Physics Professor Expl anation MOLST 05/17/2021 Molst Form Care Teams Shop Service Technician Relationship Specialty Start Date End Date Rusty Ford PA-C [address] [place] [id number] PCP - General Physician Detention Deputy 08/21/24 Johnathon Naranjo MD [address] [place] [phone] Ophthalmology 06/03/20 Additional Source Comments The information contained in this document represents components of the legal health record. It is not the complete legal health record.[facility]
--- OUTSIDE RECORDS SUMMARY | 2025-05-31 15:58 | XMS_ITS | Encounter Summary ---
Author Organization [facility] Address [address] [facility] [address] [place] [phone] Phone Care Team Providers Care Information Security Director Name Role Phone Johnathon Naranjo MD Unavailable [phone] Rusty Ford PA-C Primary Care Provider [phone] Encounter Details Date Type Department Care Team (Late st Contact Info) Description 04/06/2025 Procedure Pass [facility], Ct Scan - [facility] [address] [place] [address] Social History Tobacco Use Types Packs/Day Years [...] [facility] Medicine [address] [place] [address] [place] [address] Wiliam Willis PA-C [address] [place] [address] [place] [address] [email or web address] 06/07/2025 10:30 AM EST Appointment [facility] [address] [place] [address] Rickie Farr, DO 4 [facility] Orthopedics Sports [facility], [place] [address] 06/16/2025 10:00 AM EST Office Visit [facility] Orthopedics & Sports Medicine [address] [place] [address] Wiliam Willis PA-C [address] [place] [address] [place] [address] [email or web address] 06/16/2025 3:20 PM EST Office Visit [facility] [address] [place] [address] Rusty Ford PA-C [address] [place] [address] 07/12/2025 Procedure Pass OR Admitting Dept - Virtual Department [address] [place] [address] 07/12/2025 7:30 AM EST Hospital Encounter OR Admitting Dept - Virtual Department [address] [place] [address] Rickie Farr, DO [address] [place] [address] Orthopedics & Sports [facility], [place] [address] 07/12/2025 7:30 AM EST - 07/12/2025 9:53 AM EST Surgery OR Admitting Dept - Virtual Department [address] [place] [phone] Rickie Farr, DO 4 [facility] Orthopedics Sports [facility], [place] [address] ARTHROPLASTY ANATOMIC INVERSE SHOULDER 07/27/2025 9:00 AM EST Office Visit [facility] Orthopedics & Sports Medicine [address] [place] [address] [place] [address] Wiliam Willis PA-C [address] [place] [address] [place] [address] [email or web address] 08/24/2025 10:00 AM EST Office Visit [facility] Orthopedics & Sports Medicine [address] [place] [address] [place] [address] Rickie Farr DO [address] [place] [address] Orthopedics & Sports Medicine, [place] [address] Scheduled Procedures Name Priority Associated Diagnoses Date/Ti me ARTHROPLASTY ANATOMIC INVERSE SHOULDER Primary localized osteoarthrosis of left shoulder region 07/12/2025 7:30 AM EST TENODESIS BICEPS TENDON SHOULDER Primary localized osteoarthrosis of left shoulder region 07/12/2025 7:30 AM EST documented as of this encounter Visit Diagnoses Not on filedocumented in this encounter Additional Health Concerns Assessment Noted Time PHQ-2 Depression Total Score: 1 02/17/20 25 1:56 PM EDT documented as of this encounter Care Teams Information Security Director Relationship Specialty Start Date End Date Rusty Ford PA-C [address] [place] [address] PCP - General Physician Spinning Frame Changer 08/21/24 Johnathon Naranjo MD [address] [place] [address] Ophthalmology 06/03/20 documented as of this encounter Additional Source Comments The information contained in this document represents components of the legal health record. It is not the complete legal health record.[facility]
--- OUTSIDE RECORDS SUMMARY | 2025-05-31 15:59 | XMS_ITS | Encounter Summary ---
Author Organization [facility] Address [address] [facility] [address] [place] [phone] Phone Care Team Providers Care Bending Frame Operator Name Role Phone Johnathon Naranjo MD Unavailable [phone] Rusty Ford PA-C Primary Care Provider [phone] Encounter Details Date Type Department Care Team (Late st Contact Info) Description 05/31/2025 [facility] Only [facility] [address] [place], [place] [phone] Charis Collazo [address] [place] [address] Social History Tobacco Use Types Packs/Day Years [...] [facility] [address] [place] [address] [place] [address] Wiliam Willis PA-C [address] [place] [address] [place] [address] [email or web address] 06/07/2025 10:30 AM EST Appointment [facility] [address] [place] [address] Rickie Farr, 4 [facility] [place] [place] [address] 06/16/2025 10:00 AM EST Office Visit [facility] Orthopedics & Sports Medicine [address] [place] [address] Wiliam Willis PA-C [address] [place] [address] [place] [address] [email or web address] 06/16/2025 3:20 PM EST Office Visit [facility] Internal Medicine [address] [place] [address] Rusty Ford PA-C [address] [place] [address] 07/12/2025 Procedure Pass OR Admitting Dept - Virtual Department [address] [place] [address] 07/12/2025 7:30 AM EST Hospital Encounter OR Admitting Dept - Virtual Department [address] [place] [address] Rickie Farr DO 4 [facility] Orthopedics & Sports [facility] [place] [address] 07/12/2025 7:30 AM EST - 07/12/2025 9:53 AM EST Surgery OR Admitting Dept - Virtual Department [address] [place] [address] Rickie Farr DO 4 [facility] [place] [address] ARTHROPLASTY ANATOMIC INVERSE SHOULDER 07/27/2025 9:00 AM EST Office Visit [facility] Orthopedics & Sports Medicine [address] [place] [address] [place] [address] Wiliam Willis PA-C [address] [place] [address] [place] [address] [email or web address] 08/24/2025 10:00 AM EST Office Visit [facility] Orthopedics & Sports Medicine [address] [place] [address] [place] [address] Rickie Farr DO [address] [place] [address] Orthoped[facility] [place] [address] Scheduled Procedures Name Priority Associated Diagnoses Date/Ti [...] documented as of this encounter Care Teams Bending Frame Operator Relationship Specialty Start Date End Date Rusty Ford PA-C [address] [place] [address] PCP - General Physician Miniature Set Constructor 08/21/24 Johnathon Naranjo MD [address] [place] [address] Ophthalmology 06/03/20 documented as of this encounter Additional Source Comments The information contained in this document represents components of the legal health record. It is not the complete legal health record.[facility]
== END 2025-05-31 12:15 | disposition home or self-care (01) ==
LOC: HO.MAMMO 12:14
PROVIDERS: PCP Physician Assistant Surgical; Visit Provider Physician Assistant Surgical
DX: N64.4 Mastodynia (principal)
CPT/HCPCS: 77062; 77066

== ENCOUNTER → 2025-05-31 12:30 | Outpatient (BNV) | payer MEDICARE, OTHER, SELFPAY | PROVIDERS: PCP Physician Assistant Surgical; Visit Provider Radiology Body Imaging | DX: N64.4 Mastodynia (principal) | CPT/HCPCS: 77066; G0279 ==